=== PATIENT | male | born 1950 | race African-American/Black ===

== ENCOUNTER 2023-04-14 11:52 | Inpatient (IN) | payer OTHER, MEDICAID ==
[~2023-04-14] VITALS: Ht 182.9 cm; Wt 83.8 kg
[2023-04-14 12:00] VITALS: PULSE 112; RESP 24; O2SAT 95
[2023-04-14] MEDS ORDERED: LORazepam 2MG/ML-1ML VIAL ONE (12:39)
[2023-04-14] MEDS ORDERED: LORazepam 2MG/ML-1ML VIAL IV ONE (12:45)
[2023-04-14 13:44] LABS: Base Excess 0.1 mmol/L (-2.0-2.0)
[2023-04-14 14:18] LABS: Basophils # (auto) 0 10 ^3/uL (0-0.2); Basophils % (auto) 0.2 % (0.0-2.0); Eosinophils # (auto) 0 10 ^3/uL (0-0.8); Eosinophils % (auto) 0.2 % (0.0-7.0); Hematocrit 35.4 % (41.0-53.0); Hemoglobin 10.8 g/dL (13.5-17.5); Lymphocytes # (auto) 0.2 10 ^3/uL (0.4-5.4); Lymphocytes % (auto) 3.9 % (10.0-50.0); Mean Corpuscular Hemoglobin 24.6 pg (28.0-32.0); Mean Corpuscular Hgb Conc. 30.5 g/dL (32.0-36.0); Mean Corpuscular Volume 80.6 fL (80.0-100.0); Monocytes # (auto) 0.6 10 ^3/uL (0-1.3); Monocytes % (auto) 10.4 % (0.0-12.0); Neutrophils # (auto) 5.1 10 ^3/uL (1.6-8.6); Neutrophils % (auto) 85.3 % (37.0-80.0); Nucleated Red Blood Cells % 0.1 %; Red Blood Cells 4.39 10^6/uL (4.5-5.90); White Blood Cell 5.9 10^3/uL (4.4-10.8)
[2023-04-14 14:37] LABS: INR 1.24 (0.9-1.15); Partial Thromboplastin Time 26.9 SEC (24.5-34.5); Prothrombin Time 12.8 sec (9.3-11.8)
[2023-04-14 14:42] LABS: Alanine Aminotransferase 48 U/L (7-40); Albumin 3.2 g/dL (3.2-4.8); Alkaline Phosphatase 211 U/L (46-116); Anion Gap 9 (5-15); Aspartate Aminotransferase 46 U/L (13-40); BUN/Creatinine Ratio 18.9 (10.0-20.0); Blood Urea Nitrogen 17 mg/dL (9-23); Calcium 8.6 mg/dL (8.7-10.4); Carbon Dioxide 24 mmol/L (20-30); Chloride 113 mmol/L (98-107); Glucose 140 mg/dL (74-106); Potassium 3.8 mmol/L (3.5-5.1); Sodium 146 mmol/L (136-145)
[2023-04-14 14:43] LABS: Bilirubin, Total 1.7 mg/dL (0.2-1.0)
[2023-04-14 14:44] LABS: Total Protein 6.5 g/dL (5.7-8.2)
[2023-04-14 14:57] LABS: Lactic Acid w/Reflex 3.2 mmol/L (0.4-2.0)
[2023-04-14] MEDS ORDERED: VANCOMYCIN 1GM/200ML 250 ML IV ONE (15:15)
[2023-04-14] MEDS ORDERED: SODIUM CHLORIDE 0.9% 1,000 ML IV ONE (15:15)
[2023-04-14] MEDS ORDERED: levoFLOXacin 500MG 100 ML IV ONE (15:15)
[2023-04-14] MEDS ORDERED: FUROSEMIDE 40 MG/4 ML VIAL IV ONE (18:45)
[2023-04-14 19:28] LABS: Urine Bacteria NONE SEEN /hpf (None Seen); Urine Blood Negative /uL (Negative); Urine Clarity Clear (Clear); Urine Color Yellow (Yellow); Urine Hyaline Cast FEW /lpf (0 - 2); Urine Mucus FEW (None Seen); Urine Protein, UAD TRACE (Negative); Urine Specific Gravity 1.029 (1.001-1.035); Urine WBC 1 /hpf (0 - 3)
[2023-04-14 19:34] LABS: Amphetamine Screen, Urine Neg (NEGATIVE); Barbiturate Scree,Urine Neg (NEGATIVE); Benzodiazephine Screen, Urine Neg (NEGATIVE); Cocaine Screen, Urine Neg (NEGATIVE); Opiate Scree,Urine Neg (NEGATIVE); Phencyclidine Screen, Urine Neg (NEGATIVE)
[2023-04-14 19:35] LABS: Cannabinoid Screen, Urine Pos (NEGATIVE)
[2023-04-14 20:00] VITALS: PULSE 109; RESP 18; O2SAT 98
[2023-04-14] MEDS ORDERED: MORPHINE SULFATE INJ 2 MG/ml SYRG IV PRN (21:30)
[2023-04-14] MEDS ORDERED: NITROGLYCERIN 0.4 MG SL TAB SL PRN (21:30)
[2023-04-14] MEDS ORDERED: ONDANSETRON HCL 4 MG/2 ML VIAL IV PRN (21:30)
[2023-04-14] MEDS ORDERED: ALBUTEROL SULF 2.5 MG/0.5ML(0.5%) NEB SOLN NEB PRN (22:15)
[2023-04-14] MEDS: ENOXAPARIN SOD 100 MG/1 ML SYRINGE SC SCH (22:26)
[2023-04-15] MEDS ORDERED: LORazepam 2MG/ML-1ML VIAL IV ONE ×2 (01:30→14:15)
[2023-04-15 01:31] VITALS: BP 127/68; PULSE 97; RESP 15; TEMP 98.9; O2SAT 97
[2023-04-15] MEDS: LACTULOSE 20Gm/30ML SOLN NG SCH ×6 (02:00→22:35)
[2023-04-15] MEDS: LACTULOSE 10g/15ml SOLN 473ML PR SCH ×4 (06:00→22:34)
[2023-04-15 07:07] VITALS: O2SAT 99
[2023-04-15 07:42] LABS: Eosinophils % (auto) 0.9 % (0.0-7.0); Hematocrit 34.7 % (41.0-53.0); Neutrophils # (auto) 4.2 10 ^3/uL (1.6-8.6)
[2023-04-15 07:46] LABS: Basophils # (auto) 0.1 10 ^3/uL (0-0.2); Basophils % (auto) 1.2 % (0.0-2.0); Eosinophils # (auto) 0 10 ^3/uL (0-0.8); Hemoglobin 10.4 g/dL (13.5-17.5); Lymphocytes # (auto) 0.6 10 ^3/uL (0.4-5.4); Lymphocytes % (auto) 9.8 % (10.0-50.0); Mean Corpuscular Hemoglobin 24.3 pg (28.0-32.0); Mean Corpuscular Volume 80.9 fL (80.0-100.0); Monocytes # (auto) 0.8 10 ^3/uL (0-1.3); Monocytes % (auto) 13.5 % (0.0-12.0); Neutrophils % (auto) 74.6 % (37.0-80.0); Nucleated Red Blood Cells % 0.1 %; Red Blood Cells 4.29 10^6/uL (4.5-5.90); White Blood Cell 5.7 10^3/uL (4.4-10.8)
[2023-04-15 08:00] VITALS: PULSE 113; RESP 18; O2SAT 99
[2023-04-15 08:01] LABS: % Iron Saturation 9.6 % (20-55); Alanine Aminotransferase 43 U/L (7-40); Albumin 3.1 g/dL (3.2-4.8); Alkaline Phosphatase 181 U/L (46-116); Anion Gap 8 (5-15); Aspartate Aminotransferase 55 U/L (13-40); BUN/Creatinine Ratio 14.6 (10.0-20.0); Bilirubin, Total 1.9 mg/dL (0.2-1.0); Blood Urea Nitrogen 14 mg/dL (9-23); Calcium 8.9 mg/dL (8.5-10.1); Carbon Dioxide 25 mmol/L (20-30); Chloride 114 mmol/L (98-107); Glucose 114 mg/dL (74-106); Potassium 4.4 mmol/L (3.5-5.1); Sodium 147 mmol/L (136-145); Total Protein 6.4 g/dL (5.7-8.2)
[2023-04-15] MEDS ORDERED: levoFLOXacin 500MG 100 ML IV SCH (10:00)
[2023-04-15] MEDS: ENOXAPARIN SOD 100 MG/1 ML SYRINGE SC SCH ×2 (10:00→22:35)
[2023-04-15 10:18] LABS: Platelet Estimate Decreased
[2023-04-15 10:20] LABS: Anisocytosis Moderate; Hypochromia Slight; Ovalocytes FEW
[2023-04-15 10:21] LABS: Target Cell FEW; Tear Drop Cells FEW
[2023-04-15] MEDS ORDERED: HALOPERIDOL LACTATE 5 MG/ML INJ VIAL IM ONE (14:15)
[2023-04-15] MEDS: PANTOPRAZOLE 40 MG/10 ML VIAL INJ IV SCH (14:22)
[2023-04-15 19:30] VITALS: PULSE 111; RESP 17; O2SAT 95
[2023-04-15] MEDS ORDERED: VANCOMYCIN 1GM/200ML 250 ML IV ONE (20:00)
[2023-04-15] MEDS ORDERED: VANCOMYCIN PER PHARMACY 0 MG IV SCH (22:00)
[2023-04-15] MEDS: LORazepam 2MG/ML-1ML VIAL IV PRN (23:53)
[2023-04-16] MEDS ORDERED: LORazepam 2MG/ML-1ML VIAL IV ONE (00:45)
[2023-04-16] MEDS ORDERED: diphenhdrAMINE HCL 50 MG/1 ML VL IV ONE (03:00)
[2023-04-16 05:23] LABS: Hemoglobin 10.6 g/dL (13.5-17.5)
[2023-04-16 05:25] LABS: Hematocrit 33.9 % (41.0-53.0); Mean Corpuscular Hemoglobin 24.9 pg (28.0-32.0); Mean Corpuscular Hgb Conc. 31.2 g/dL (32.0-36.0); Red Blood Cells 4.25 10^6/uL (4.5-5.90); White Blood Cell 8.6 10^3/uL (4.4-10.8)
[2023-04-16 05:38] LABS: Alanine Aminotransferase 61 U/L (7-40); Albumin 3.4 g/dL (3.2-4.8); Alkaline Phosphatase 178 U/L (46-116); Anion Gap 10 (5-15); Aspartate Aminotransferase 126 U/L (13-40); BUN/Creatinine Ratio 18.1 (10.0-20.0); Blood Urea Nitrogen 17 mg/dL (9-23); Calcium 8.9 mg/dL (8.7-10.4); Carbon Dioxide 23 mmol/L (20-30); Chloride 115 mmol/L (98-107); Glucose 91 mg/dL (74-106); Potassium 3.7 mmol/L (3.5-5.1); Sodium 148 mmol/L (136-145)
[2023-04-16 05:40] LABS: Bilirubin, Total 2.9 mg/dL (0.2-1.0)
[2023-04-16 05:44] LABS: Red Cell Distribution Width 25.2 % (11.8-14.3)
[2023-04-16 05:46] LABS: Basophils % (manual) 0 (0.0-2.0); Blast Cells 0; Eosinophils % (manual) 0 (0-7); Metamyelocytes % 0; Myelocytes % 0; Promyelocytes % 0; Reactive Lymphocytes 0
[2023-04-16 06:04] VITALS: O2SAT 95
[2023-04-16 06:58] LABS: Anisocytosis Moderate; Band Neutrophils % (manual) 1; Hypochromia Slight; Lymphocytes % (manual) 3 (10.0-50.0); Monocytes % (manual) 9 (0-12)
[2023-04-16 06:59] LABS: Ovalocytes FEW; Platelet Estimate Adequate; Target Cell FEW
[2023-04-16] MEDS: LACTULOSE 10g/15ml SOLN 473ML PR SCH ×4 (07:10→17:45)
[2023-04-16 07:30] VITALS: PULSE 106; RESP 17; O2SAT 98
[2023-04-16] MEDS: ENOXAPARIN SOD 100 MG/1 ML SYRINGE SC SCH ×2 (10:24→23:45)
[2023-04-16] MEDS: PANTOPRAZOLE 40 MG/10 ML VIAL INJ IV SCH (10:25)
[2023-04-16] MEDS: VANCOMYCIN 1GM/200ML 250 ML IV SCH ×2 (10:25→23:44)
[2023-04-16] MEDS ORDERED: HALOPERIDOL LACTATE 5 MG/ML INJ VIAL IM ONE (14:00)
[2023-04-16] MEDS ORDERED: LACTULOSE 20Gm/30ML SOLN PO SCH (18:00)
[2023-04-16 19:05] VITALS: PULSE 113; RESP 21; O2SAT 93
[2023-04-16 22:00] VITALS: BP 146/59; PULSE 101; RESP 17; TEMP 97.6; O2SAT 97
[2023-04-16] MEDS: LORazepam 2MG/ML-1ML VIAL IV PRN (22:15)
[2023-04-17] VITALS (11 sets, daily range): BP systolic 129–148; BP diastolic 66–75; PULSE 68–98; RESP 18–22; TEMP 97.2–98.2; O2SAT 94–99
[2023-04-17] MEDS: LACTULOSE 10g/15ml SOLN 473ML PR SCH ×2 (00:49→04:00)
[2023-04-17] MEDS ORDERED: LACTULOSE 10g/15ml SOLN 473ML PR SCH (08:00)
[2023-04-17] MEDS ORDERED: LACTULOSE 20Gm/30ML SOLN ONE ×3 (09:25→17:34)
[2023-04-17] MEDS: LACTULOSE 20Gm/30ML SOLN PO SCH ×4 (09:30→17:38)
[2023-04-17] MEDS: PANTOPRAZOLE 40 MG/10 ML VIAL INJ IV SCH (09:32)
[2023-04-17] MEDS: ENOXAPARIN SOD 100 MG/1 ML SYRINGE SC SCH ×2 (09:32→21:42)
[2023-04-17] MEDS: LORazepam 2MG/ML-1ML VIAL IV PRN ×2 (10:51→23:07)
[2023-04-17] MEDS: VANCOMYCIN 1GM/200ML 250 ML IV SCH (14:56)
[2023-04-17] MEDS ORDERED: ALBUMIN 25% 100 ML IV ONE ×2 (15:59→17:26)
[2023-04-17] MEDS: ALBUMIN 25% 100 ML IV SCH ×2 (16:21→17:30)
[2023-04-17 16:25] LABS: Body Fluid pH 8
[2023-04-17 16:51] LABS: Body Fluid Polymorphonuclear 6 % (0-25); Body Fluid Red Blood Cells 18 CUMM (0-2000); Body Fluid White Blood Cells 103 CUMM (0-200)
[2023-04-17] MEDS ORDERED: HALOPERIDOL LACTATE 5 MG/ML INJ VIAL IM PRN (22:30)
[2023-04-18] VITALS (9 sets, daily range): BP systolic 113–144; BP diastolic 55–78; PULSE 62–98; RESP 16–19; TEMP 97.7–98.6; O2SAT 93–99
[2023-04-18] MEDS ORDERED: HALOPERIDOL LACTATE 5 MG/ML INJ VIAL ONE (01:32)
[2023-04-18] MEDS: VANCOMYCIN 1GM/200ML 250 ML IV SCH ×2 (01:37→14:47)
[2023-04-18] MEDS ORDERED: LACTULOSE 20Gm/30ML SOLN ONE ×3 (03:16→17:46)
[2023-04-18] MEDS: LACTULOSE 20Gm/30ML SOLN PO SCH ×3 (04:22→17:48)
[2023-04-18] MEDS: ENOXAPARIN SOD 100 MG/1 ML SYRINGE SC SCH ×2 (09:09→22:00)
[2023-04-18] MEDS: LORazepam 2MG/ML-1ML VIAL IV PRN ×3 (09:09→17:56)
[2023-04-18] MEDS: PANTOPRAZOLE 40 MG/10 ML VIAL INJ IV SCH ×2 (09:09→11:10)
[2023-04-18 11:06] LABS: Albumin, Body Fluid 0.2 g/dL (Not Estab.); Protein, Body Fluid 0.6 g/dL (.)
[2023-04-18 11:22] LABS: Basophils # (auto) 0 10 ^3/uL (0-0.2); Basophils % (auto) 0.1 % (0.0-2.0); Eosinophils # (auto) 0.1 10 ^3/uL (0-0.8); Lymphocytes # (auto) 0.4 10 ^3/uL (0.4-5.4); Monocytes # (auto) 0.5 10 ^3/uL (0-1.3)
[2023-04-18 11:24] LABS: Hematocrit 29.5 % (41.0-53.0); Lymphocytes % (auto) 10.8 % (10.0-50.0); Mean Corpuscular Hemoglobin 24.7 pg (28.0-32.0); Mean Corpuscular Hgb Conc. 30.6 g/dL (32.0-36.0); Mean Corpuscular Volume 80.7 fL (80.0-100.0); Monocytes % (auto) 11.6 % (0.0-12.0); Neutrophils % (auto) 75.5 % (37.0-80.0); Nucleated Red Blood Cells % 0.1 %; Red Blood Cells 3.66 10^6/uL (4.5-5.90)
[2023-04-18 11:25] LABS: Red Cell Distribution Width 24.7 % (11.8-14.3)
[2023-04-18 11:34] LABS: Alanine Aminotransferase 45 U/L (7-40); Albumin 2.9 g/dL (3.2-4.8); Alkaline Phosphatase 110 U/L (46-116); Anion Gap 5 (5-15); Aspartate Aminotransferase 75 U/L (13-40); BUN/Creatinine Ratio 15.5 (10.0-20.0); Blood Urea Nitrogen 15 mg/dL (9-23); Calcium 8.4 mg/dL (8.7-10.4); Carbon Dioxide 26 mmol/L (20-30); Chloride 118 mmol/L (98-107); Glucose 119 mg/dL (74-106); Potassium 3.5 mmol/L (3.5-5.1); Sodium 149 mmol/L (136-145)
[2023-04-18 11:35] LABS: Bilirubin, Total 1.3 mg/dL (0.2-1.0); Total Protein 5.6 g/dL (5.7-8.2)
[2023-04-18] MEDS ORDERED: ALBUMIN 25% 100 ML IV ONE ×2 (16:10→16:15)
[2023-04-19] VITALS (9 sets, daily range): BP systolic 119–138; BP diastolic 71–78; PULSE 81–102; RESP 17–20; TEMP 97.9–98.7; O2SAT 95–99
[2023-04-19] MEDS: VANCOMYCIN 1GM/200ML 250 ML IV SCH ×2 (05:00→13:27)
[2023-04-19] MEDS: LACTULOSE 20Gm/30ML SOLN PO SCH ×2 (06:00)
[2023-04-19] MEDS ORDERED: D5W 5% 1,000 ML IV SCH (08:00)
[2023-04-19] MEDS ORDERED: LACTULOSE 20Gm/30ML SOLN PO PRN (10:00)
[2023-04-19] MEDS: SPIRONOLACTONE 25 MG TAB PO SCH (11:31)
[2023-04-19] MEDS: FUROSEMIDE 40 MG TAB PO SCH (11:32)
[2023-04-19] MEDS: ENOXAPARIN SOD 100 MG/1 ML SYRINGE SC SCH (11:32)
[2023-04-19] MEDS: PANTOPRAZOLE 40 MG/10 ML VIAL INJ IV SCH (13:00)
[2023-04-19] MEDS ORDERED: D5W 5% 500 ML IV SCH (14:15)
[2023-04-19] MEDS ORDERED: ACETAMINOPHEN 325 MG TAB PO PRN (15:15)
[2023-04-19] MEDS: HYDROcodone-ACET 5/325MG TAB PO PRN (16:11)
[2023-04-20] VITALS (8 sets, daily range): BP systolic 105–144; BP diastolic 61–80; PULSE 88–105; RESP 16–20; TEMP 98–99.2; O2SAT 94–97
[2023-04-20] MEDS: ENOXAPARIN SOD 100 MG/1 ML SYRINGE SC SCH ×3 (00:25→21:07)
[2023-04-20] MEDS: HYDROcodone-ACET 10/325MG TAB PO PRN ×2 (00:38→21:16)
[2023-04-20] MEDS: VANCOMYCIN 1GM/200ML 250 ML IV SCH ×2 (04:38→17:10)
[2023-04-20 09:08] LABS: Basophils # (auto) 0 10 ^3/uL (0-0.2); Basophils % (auto) 1.1 % (0.0-2.0); Eosinophils # (auto) 0.2 10 ^3/uL (0-0.8); Hematocrit 33.9 % (41.0-53.0); Hemoglobin 9.9 g/dL (13.5-17.5); Lymphocytes # (auto) 0.4 10 ^3/uL (0.4-5.4); Lymphocytes % (auto) 9.9 % (10.0-50.0); Mean Corpuscular Hemoglobin 24.7 pg (28.0-32.0); Mean Corpuscular Hgb Conc. 29.4 g/dL (32.0-36.0); Mean Corpuscular Volume 84.1 fL (80.0-100.0); Monocytes # (auto) 0.6 10 ^3/uL (0-1.3); Monocytes % (auto) 12.7 % (0.0-12.0); Neutrophils # (auto) 3.2 10 ^3/uL (1.6-8.6); Neutrophils % (auto) 72.3 % (37.0-80.0); Nucleated Red Blood Cells % 0.1 %; Red Blood Cells 4.03 10^6/uL (4.5-5.90); White Blood Cell 4.5 10^3/uL (4.4-10.8)
[2023-04-20 09:09] LABS: Red Cell Distribution Width 24.2 % (11.8-14.3)
[2023-04-20 09:21] LABS: Alanine Aminotransferase 56 U/L (7-40); Albumin 2.9 g/dL (3.2-4.8); Alkaline Phosphatase 141 U/L (46-116); Anion Gap 9 (5-15); Aspartate Aminotransferase 60 U/L (13-40); BUN/Creatinine Ratio 16.9 (10.0-20.0); Bilirubin, Total 0.7 mg/dL (0.2-1.0); Blood Urea Nitrogen 13 mg/dL (9-23); Calcium 8.6 mg/dL (8.5-10.1); Carbon Dioxide 19 mmol/L (20-30); Chloride 112 mmol/L (98-107); Glucose 159 mg/dL (74-106); Potassium 4.2 mmol/L (3.5-5.1); Sodium 140 mmol/L (136-145); Total Protein 5.6 g/dL (5.7-8.2)
[2023-04-20] MEDS: PANTOPRAZOLE 40 MG/10 ML VIAL INJ IV SCH (09:53)
[2023-04-20] MEDS: FUROSEMIDE 40 MG TAB PO SCH (09:54)
[2023-04-20] MEDS: SPIRONOLACTONE 25 MG TAB PO SCH (09:54)
[2023-04-20] MEDS: HYDROcodone-ACET 5/325MG TAB PO PRN (15:56)
[2023-04-21 05:00] VITALS: BP 116/64; PULSE 83; RESP 16; TEMP 97.7; O2SAT 96
[2023-04-21 07:43] LABS: Anion Gap 6 (5-15); Carbon Dioxide 22 mmol/L (20-30); Chloride 109 mmol/L (98-107); Potassium 4.2 mmol/L (3.5-5.1); Sodium 137 mmol/L (136-145)
[2023-04-21 07:44] LABS: Calcium 8.7 mg/dL (8.5-10.1)
[2023-04-21 07:49] LABS: BUN/Creatinine Ratio 12.8 (10.0-20.0); Blood Urea Nitrogen 10 mg/dL (9-23); Glucose 149 mg/dL (74-106)
[2023-04-21 08:00] VITALS: PULSE 109; RESP 20
[2023-04-21] MEDS: VANCOMYCIN 1GM/200ML 250 ML IV SCH (08:38)
[2023-04-21 09:00] VITALS: BP 122/62; PULSE 88; RESP 20; TEMP 98.4; O2SAT 98
[2023-04-21 10:00] VITALS: O2SAT 98
[2023-04-21] MEDS: ENOXAPARIN SOD 100 MG/1 ML SYRINGE SC SCH (11:05)
[2023-04-21] MEDS: PANTOPRAZOLE 40 MG/10 ML VIAL INJ IV SCH (11:05)
[2023-04-21] MEDS: SPIRONOLACTONE 25 MG TAB PO SCH (11:06)
[2023-04-21] MEDS: FUROSEMIDE 40 MG TAB PO SCH (11:06)
[2023-04-21] MEDS: HYDROcodone-ACET 10/325MG TAB PO PRN (11:22)
[2023-04-21] MEDS ORDERED: OCTREOTIDE ACETATE 100 MCG/ML VL SUBCUT SCH (14:00)
[2023-04-21] MEDS ORDERED: LACT10SO3 PO (16:07)
[2023-04-21] MEDS ORDERED: SPIR100T4 PO (16:07)
[2023-04-21] MEDS ORDERED: FURO40TA4 PO (16:07)
[2023-04-21] MEDS ORDERED: PANT40TA2 PO (16:07)
== END 2023-04-21 18:35 | disposition home health service (06) | DRG 432 ==
LOC: EDBD 11:52 → ER 11:52 → INTOOBSV 21:56 → TELE 21:56 → TELE-CENTR 04-16 22:40 → OBSVTOIN 04-17 00:46
PROVIDERS: ADMIT Hospitalist; ATTEND Student in an Organized Health Care Education/Training Program
PROC: 0W9G3ZZ Drainage of Peritoneal Cavity, Percutaneous Approach (ICD-10-PCS; principal; 2023-04-17)
PROC: 05HA33Z Insertion of Infusion Device into Left Brachial Vein, Percutaneous Approach (ICD-10-PCS; 2023-04-19)
PROC: B54NZZA Ultrasonography of Left Upper Extremity Veins, Guidance (ICD-10-PCS; 2023-04-19)
PROC: 0W9G3ZZ Drainage of Peritoneal Cavity, Percutaneous Approach (ICD-10-PCS; 2023-04-20)
DX: K74.60 Unspecified cirrhosis of liver (principal); G93.41 Metabolic encephalopathy; J96.01 Acute respiratory failure with hypoxia; D68.59 Other primary thrombophilia; E87.1 Hypo-osmolality and hyponatremia; K76.82 Hepatic encephalopathy; I48.91 Unspecified atrial fibrillation; N40.0 Benign prostatic hyperplasia without lower urinary tract symptoms; E11.40 Type 2 diabetes mellitus with diabetic neuropathy, unspecified; E78.5 Hyperlipidemia, unspecified; D64.9 Anemia, unspecified; E11.51 Type 2 diabetes mellitus with diabetic peripheral angiopathy without gangrene; I10 Essential (primary) hypertension; Z78.1 Physical restraint status; Z79.01 Long term (current) use of anticoagulants; Z83.3 Family history of diabetes mellitus; Z86.011 Personal history of benign neoplasm of the brain; Z86.73 Personal history of transient ischemic attack (TIA), and cerebral infarction without residual deficits; Z89.429 Acquired absence of other toe(s), unspecified side; Z91.128 Patient's intentional underdosing of medication regimen for other reason; Z88.0 Allergy status to penicillin
CPT/HCPCS: 36415; 36600; 70450; 71045; 74176; 76705; 76942; 80048; 80053; 80202; 80307; 81001; 82140; 82565; 82805; 82962; 83540; 83550; 83605; 83615; 83735; 83986; 85007; 85025; 85027; 85045; 85048; 85610; 85730; 87040; 87045; 87077; 87081; 87186; 87205; 87427; 89051; 93005; 95819; 97163; C9113; G0378; J1956; P9047

== ENCOUNTER 2023-05-01 14:36 | Inpatient (IN) | payer OTHER, MEDICAID ==
[~2023-05-01] VITALS: Ht 177.8 cm; Wt 78.3 kg
[~2023-05-01 14:36] MED LIST: FURO40TA4 PO; LACT10SO3 PO; PANT40TA2 PO; SPIR100T4 PO
[2023-05-01 15:33] LABS: Basophils # (auto) 0 10 ^3/uL (0-0.2); Eosinophils # (auto) 0.1 10 ^3/uL (0-0.8); Lymphocytes # (auto) 0.4 10 ^3/uL (0.4-5.4); Monocytes # (auto) 0.7 10 ^3/uL (0-1.3); Nucleated Red Blood Cells % 0.1 %
[2023-05-01 15:35] LABS: Basophils % (auto) 0.2 % (0.0-2.0); Eosinophils % (auto) 1.1 % (0.0-7.0); Hematocrit 29.9 % (41.0-53.0); Hemoglobin 9.2 g/dL (13.5-17.5); Lymphocytes % (auto) 5.5 % (10.0-50.0); Mean Corpuscular Hemoglobin 25.7 pg (28.0-32.0); Mean Corpuscular Hgb Conc. 30.6 g/dL (32.0-36.0); Monocytes % (auto) 10.1 % (0.0-12.0); Neutrophils # (auto) 5.6 10 ^3/uL (1.6-8.6); Neutrophils % (auto) 83.1 % (37.0-80.0); Red Blood Cells 3.57 10^6/uL (4.5-5.90); White Blood Cell 6.8 10^3/uL (4.4-10.8)
[2023-05-01 15:44] LABS: INR 1.21 (0.9-1.15); Partial Thromboplastin Time 26.9 SEC (24.5-34.5); Prothrombin Time 12.5 sec (9.3-11.8)
[2023-05-01 15:45] LABS: Red Cell Distribution Width 25.6 % (11.8-14.3)
[2023-05-01 15:51] LABS: Alanine Aminotransferase 69 U/L (7-40); Albumin 3.4 g/dL (3.2-4.8); Alkaline Phosphatase 211 U/L (46-116); Anion Gap 13 (5-15); Aspartate Aminotransferase 53 U/L (13-40); BUN/Creatinine Ratio 20.8 (10.0-20.0); Blood Urea Nitrogen 20 mg/dL (9-23); Calcium 8.9 mg/dL (8.5-10.1); Carbon Dioxide 15 mmol/L (20-30); Chloride 112 mmol/L (98-107); Glucose 229 mg/dL (74-106); Potassium 4.2 mmol/L (3.5-5.1); Sodium 140 mmol/L (136-145)
[2023-05-01 15:52] LABS: Total Protein 6.5 g/dL (5.7-8.2)
[2023-05-01 16:55] LABS: Platelet Estimate Decreased
[2023-05-01 16:56] LABS: Anisocytosis Moderate; Ovalocytes MODERATE
[2023-05-01] MEDS ORDERED: LACTULOSE 20Gm/30ML SOLN PO ONE (19:45)
[2023-05-01 20:00] VITALS: PULSE 84; RESP 14; O2SAT 98
[2023-05-01] MEDS ORDERED: LORazepam 2MG/ML-1ML VIAL IM ONE (20:45)
[2023-05-01] MEDS ORDERED: LORazepam 2MG/ML-1ML VIAL IV ONE (20:45)
[2023-05-02] MEDS ORDERED: LORazepam 2MG/ML-1ML VIAL IM ONE (02:45)
[2023-05-02] MEDS ORDERED: hydrALAZINE HCL 20 MG/ML VL IV PRN (03:00)
[2023-05-02] MEDS ORDERED: MORPHINE SULFATE INJ 2 MG/ml SYRG IV PRN (03:15)
[2023-05-02] MEDS ORDERED: NITROGLYCERIN 0.4 MG SL TAB SL PRN (03:15)
[2023-05-02] MEDS ORDERED: ONDANSETRON HCL 4 MG/2 ML VIAL IV PRN (03:15)
[2023-05-02] MEDS ORDERED: SOD CHL 0.45% 1,000 ML IV ONE (03:30)
[2023-05-02] MEDS ORDERED: LORazepam 2MG/ML-1ML VIAL IV ONE (06:00)
[2023-05-02 06:41] LABS: Alanine Aminotransferase 63 U/L (7-40); Albumin 3.4 g/dL (3.2-4.8); Alkaline Phosphatase 206 U/L (46-116); Anion Gap 11 (5-15); Aspartate Aminotransferase 44 U/L (13-40); BUN/Creatinine Ratio 10.9 (10.0-20.0); Blood Urea Nitrogen 10 mg/dL (9-23); Calcium 8.9 mg/dL (8.7-10.4); Carbon Dioxide 16 mmol/L (20-30); Chloride 115 mmol/L (98-107); Glucose 156 mg/dL (74-106); Lipase 41 U/L (12-53); Potassium 3.7 mmol/L (3.5-5.1); Sodium 142 mmol/L (136-145)
[2023-05-02 06:42] LABS: Bilirubin, Total 1.9 mg/dL (0.2-1.0); Total Protein 6.8 g/dL (5.7-8.2)
[2023-05-02 07:05] LABS: Basophils # (auto) 0 10 ^3/uL (0-0.2); Eosinophils # (auto) 0 10 ^3/uL (0-0.8); Lymphocytes # (auto) 0.4 10 ^3/uL (0.4-5.4)
[2023-05-02 07:07] LABS: Basophils % (auto) 0.6 % (0.0-2.0); Eosinophils % (auto) 0.3 % (0.0-7.0); Hemoglobin 9.4 g/dL (13.5-17.5); Lymphocytes % (auto) 5.7 % (10.0-50.0); Mean Corpuscular Hemoglobin 25.4 pg (28.0-32.0); Mean Corpuscular Hgb Conc. 30.5 g/dL (32.0-36.0); Mean Corpuscular Volume 83.3 fL (80.0-100.0); Monocytes # (auto) 0.6 10 ^3/uL (0-1.3); Monocytes % (auto) 8.6 % (0.0-12.0); Neutrophils # (auto) 6.3 10 ^3/uL (1.6-8.6); Neutrophils % (auto) 84.8 % (37.0-80.0); Red Blood Cells 3.72 10^6/uL (4.5-5.90); White Blood Cell 7.4 10^3/uL (4.4-10.8)
[2023-05-02 07:27] LABS: Red Cell Distribution Width 25.5 % (11.8-14.3)
[2023-05-02 08:00] VITALS: PULSE 93; RESP 15; O2SAT 97
[2023-05-02] MEDS: LACTULOSE 10g/15ml SOLN 473ML PR SCH ×3 (08:27→20:06)
[2023-05-02 12:07] LABS: Amphetamine Screen, Urine Neg (NEGATIVE); Barbiturate Scree,Urine Neg (NEGATIVE); Benzodiazephine Screen, Urine Neg (NEGATIVE); Cannabinoid Screen, Urine Pos (NEGATIVE); Cocaine Screen, Urine Neg (NEGATIVE); Opiate Scree,Urine Neg (NEGATIVE); Phencyclidine Screen, Urine Neg (NEGATIVE)
[2023-05-02 14:54] LABS: Urine Bacteria FEW /hpf (None Seen); Urine Blood Negative /uL (Negative); Urine Budding Yeast FEW /hpf (None Seen); Urine Clarity HAZY (Clear); Urine Color Yellow (Yellow); Urine Mucus FEW (None Seen); Urine Protein, UAD TRACE (Negative); Urine Specific Gravity 1.024 (1.001-1.035); Urine WBC 85 /hpf (0 - 3); Urine pH 5.5 (5.0-8.0)
[2023-05-02] MEDS: cefTRIAXone 1GM/50ML D5W 50 ML IV SCH (15:49)
[2023-05-02 19:45] VITALS: PULSE 97; RESP 10; O2SAT 98
[2023-05-02] MEDS: LORazepam 2MG/ML-1ML VIAL IV PRN (20:25)
[2023-05-02 22:00] VITALS: BP 155/86; PULSE 100; RESP 19; TEMP 98.2; O2SAT 100
[2023-05-02] MEDS: rifAXIMin 550 MG TAB PO SCH (22:00)
[2023-05-02 22:10] VITALS: TEMP 36.8
[2023-05-03] VITALS (7 sets, daily range): BP systolic 129–159; BP diastolic 66–84; PULSE 85–98; RESP 15–20; TEMP 97.2–98.7; O2SAT 92–100
[2023-05-03] MEDS ORDERED: LACTULOSE 10g/15ml SOLN 473ML PR SCH (02:00)
[2023-05-03] MEDS: LACTULOSE 10g/15ml SOLN 473ML PR SCH ×4 (02:22→20:00)
[2023-05-03] MEDS: LORazepam 2MG/ML-1ML VIAL IV PRN (03:28)
[2023-05-03] MEDS: cefTRIAXone 1GM/50ML D5W 50 ML IV SCH (09:50)
[2023-05-03] MEDS: LACTULOSE 20Gm/30ML SOLN PO SCH ×4 (12:00→22:47)
[2023-05-03] MEDS: rifAXIMin 550 MG TAB PO SCH ×2 (12:57→22:45)
[2023-05-04] MEDS: LORazepam 2MG/ML-1ML VIAL IV PRN ×4 (00:03→18:28)
[2023-05-04] MEDS: LACTULOSE 20Gm/30ML SOLN PO SCH ×4 (00:04→18:42)
[2023-05-04] MEDS: LACTULOSE 10g/15ml SOLN 473ML PR SCH ×3 (02:00→11:57)
[2023-05-04] MEDS ORDERED: LORazepam 2MG/ML-1ML VIAL IV ONE (03:30)
[2023-05-04 08:30] VITALS: BP 154/50; PULSE 98; RESP 19; TEMP 97.4
[2023-05-04 09:00] VITALS: BP 154/50; PULSE 98; RESP 19; TEMP 97.4
[2023-05-04] MEDS: cefTRIAXone 1GM/50ML D5W 50 ML IV SCH (09:25)
[2023-05-04] MEDS: rifAXIMin 550 MG TAB PO SCH ×3 (10:00→21:34)
[2023-05-04 13:00] VITALS: BP 158/77; PULSE 98; RESP 19; TEMP 97.4
[2023-05-04 16:55] VITALS: BP 139/62; PULSE 81; RESP 18; TEMP 97.7; O2SAT 99
[2023-05-04 20:00] VITALS: PULSE 89
[2023-05-04 21:53] VITALS: BP 157/69; PULSE 96; RESP 18; TEMP 97.7; O2SAT 95
[2023-05-05] MEDS: LACTULOSE 20Gm/30ML SOLN PO SCH ×5 (00:15→23:08)
[2023-05-05] MEDS: LORazepam 2MG/ML-1ML VIAL IV PRN (00:37)
[2023-05-05 06:33] LABS: Alanine Aminotransferase 58 U/L (7-40); Albumin 3.4 g/dL (3.2-4.8); Alkaline Phosphatase 181 U/L (46-116); Anion Gap 11 (5-15); Aspartate Aminotransferase 53 U/L (13-40); BUN/Creatinine Ratio 13.9 (10.0-20.0); Blood Urea Nitrogen 11 mg/dL (9-23); Calcium 8.9 mg/dL (8.7-10.4); Carbon Dioxide 17 mmol/L (20-30); Chloride 120 mmol/L (98-107); Glucose 101 mg/dL (74-106); Potassium 3.5 mmol/L (3.5-5.1)
[2023-05-05 06:34] LABS: Bilirubin, Total 1.3 mg/dL (0.2-1.0); Total Protein 6.6 g/dL (5.7-8.2)
[2023-05-05 06:39] LABS: Sodium 148 mmol/L (136-145)
[2023-05-05 07:26] LABS: Basophils # (auto) 0 10 ^3/uL (0-0.2); Basophils % (auto) 0.2 % (0.0-2.0); Eosinophils # (auto) 0.1 10 ^3/uL (0-0.8); Lymphocytes # (auto) 0.3 10 ^3/uL (0.4-5.4); Mean Corpuscular Hgb Conc. 31.4 g/dL (32.0-36.0); Monocytes # (auto) 0.4 10 ^3/uL (0-1.3); Neutrophils # (auto) 3.9 10 ^3/uL (1.6-8.6); Nucleated Red Blood Cells % 0.1 %; Red Blood Cells 3.83 10^6/uL (4.5-5.90)
[2023-05-05 07:29] LABS: Eosinophils % (auto) 1.4 % (0.0-7.0); Hematocrit 31.7 % (41.0-53.0); Lymphocytes % (auto) 5.6 % (10.0-50.0); Mean Corpuscular Volume 82.8 fL (80.0-100.0); Monocytes % (auto) 8.4 % (0.0-12.0); Neutrophils % (auto) 84.4 % (37.0-80.0); White Blood Cell 4.7 10^3/uL (4.4-10.8)
[2023-05-05 07:52] LABS: Red Cell Distribution Width 26.3 % (11.8-14.3)
[2023-05-05 08:00] VITALS: PULSE 103; PULSE 86; RESP 18
[2023-05-05] MEDS: cefTRIAXone 1GM/50ML D5W 50 ML IV SCH (09:00)
[2023-05-05] MEDS ORDERED: LORazepam 0.5 MG TAB PO PRN (11:30)
[2023-05-05] MEDS: rifAXIMin 550 MG TAB PO SCH ×2 (11:35→21:42)
[2023-05-05] MEDS: PANTOPRAZOLE 40 MG TAB PO SCH (11:35)
[2023-05-05] MEDS: SPIRONOLACTONE 25 MG TAB PO SCH (11:35)
[2023-05-05] MEDS: FUROSEMIDE 40 MG TAB PO SCH (11:36)
[2023-05-05 12:50] LABS: Platelet Estimate Adequate
[2023-05-05 12:51] LABS: Anisocytosis Moderate
[2023-05-05 13:00] VITALS: BP 136/66; PULSE 82; RESP 18; TEMP 98.5; O2SAT 96
[2023-05-05 16:38] VITALS: BP 140/72; PULSE 78; RESP 19; TEMP 98; O2SAT 95
[2023-05-05 20:00] VITALS: PULSE 90
[2023-05-05 22:00] VITALS: BP 139/66; PULSE 87; RESP 19; TEMP 98.4; O2SAT 96
[2023-05-06 05:00] VITALS: BP 139/77; PULSE 83; RESP 18; TEMP 97.5; O2SAT 99
[2023-05-06] MEDS: LACTULOSE 20Gm/30ML SOLN PO SCH ×2 (06:34→13:16)
[2023-05-06 08:00] VITALS: PULSE 64
[2023-05-06] MEDS: cefTRIAXone 1GM/50ML D5W 50 ML IV SCH (08:08)
[2023-05-06] MEDS: SPIRONOLACTONE 25 MG TAB PO SCH (08:18)
[2023-05-06] MEDS: rifAXIMin 550 MG TAB PO SCH (08:18)
[2023-05-06] MEDS: FUROSEMIDE 40 MG TAB PO SCH (08:19)
[2023-05-06] MEDS: PANTOPRAZOLE 40 MG TAB PO SCH (08:19)
[2023-05-06 09:00] VITALS: BP 127/67; PULSE 77; RESP 17; TEMP 98.1; O2SAT 98
[2023-05-06 11:01] LABS: Basophils # (auto) 0 10 ^3/uL (0-0.2); Eosinophils # (auto) 0.1 10 ^3/uL (0-0.8); Hemoglobin 9.5 g/dL (13.5-17.5); Lymphocytes # (auto) 0.5 10 ^3/uL (0.4-5.4); Mean Corpuscular Volume 83.8 fL (80.0-100.0); Monocytes # (auto) 0.6 10 ^3/uL (0-1.3); Neutrophils # (auto) 4.3 10 ^3/uL (1.6-8.6); Nucleated Red Blood Cells % 0.2 %; White Blood Cell 5.5 10^3/uL (4.4-10.8)
[2023-05-06 11:05] LABS: Basophils % (auto) 0.1 % (0.0-2.0); Eosinophils % (auto) 1.7 % (0.0-7.0); Hematocrit 30.9 % (41.0-53.0); Lymphocytes % (auto) 8.3 % (10.0-50.0); Mean Corpuscular Hemoglobin 25.8 pg (28.0-32.0); Mean Corpuscular Hgb Conc. 30.8 g/dL (32.0-36.0); Monocytes % (auto) 10.7 % (0.0-12.0); Neutrophils % (auto) 79.2 % (37.0-80.0); Red Blood Cells 3.69 10^6/uL (4.5-5.90)
[2023-05-06 11:07] LABS: Red Cell Distribution Width 25.9 % (11.8-14.3)
[2023-05-06 11:20] LABS: Alanine Aminotransferase 52 U/L (7-40); Albumin 3.1 g/dL (3.2-4.8); Alkaline Phosphatase 176 U/L (46-116); Anion Gap 8 (5-15); Aspartate Aminotransferase 43 U/L (13-40); Bilirubin, Total 1.2 mg/dL (0.2-1.0); Blood Urea Nitrogen 8 mg/dL (9-23); Calcium 8.4 mg/dL (8.7-10.4); Carbon Dioxide 20 mmol/L (20-30); Chloride 114 mmol/L (98-107); Glucose 158 mg/dL (74-106); Magnesium 1.9 mg/dL (1.6-2.6); Potassium 3.5 mmol/L (3.5-5.1); Sodium 142 mmol/L (136-145); Total Protein 6.1 g/dL (5.7-8.2)
[2023-05-06] MEDS ORDERED: RIFA550T PO (11:48)
[2023-05-06 13:00] VITALS: BP 121/66; PULSE 72; RESP 18; TEMP 97.8; O2SAT 99
[2023-05-06 18:28] LABS: Body Fluid Polymorphonuclear 11 % (0-25); Body Fluid Red Blood Cells 480 CUMM (0-2000); Body Fluid White Blood Cells 37.5 CUMM (0-200)
[2023-05-07 09:55] LABS: Hepatitis B Core Total AB Negative (Negative)
[2023-05-07 12:06] LABS: Albumin, Body Fluid 0.4 g/dL (Not Estab.)
[2023-05-07 12:12] LABS: Hepatitis A Ab IgM Negative; Hepatitis A Total Antibody Positive (Negative); Hepatitis B Core IgM Negative
[2023-05-07 12:13] LABS: Hepatitis B Surface Antibody Positive (Negative); Hepatitis B Surface Antigen Negative (Negative); Hepatitis C Antibody Negative (Negative)
== END 2023-05-06 17:14 | disposition home health service (06) | DRG 433 ==
LOC: ER 14:36 → EDBD 14:36 → EDUNIT# 14:36 → TELE 05-02 03:12 → TELE-WESTW 05-02 03:18 → OBSVTOIN 05-04 03:29
PROVIDERS: ADMIT Student in an Organized Health Care Education/Training Program; ATTEND Student in an Organized Health Care Education/Training Program
PROC: 05H933Z Insertion of Infusion Device into Right Brachial Vein, Percutaneous Approach (ICD-10-PCS; 2023-05-05)
PROC: B54MZZA Ultrasonography of Right Upper Extremity Veins, Guidance (ICD-10-PCS; 2023-05-05)
PROC: 0W9G3ZZ Drainage of Peritoneal Cavity, Percutaneous Approach (ICD-10-PCS; principal; 2023-05-06)
DX: K74.60 Unspecified cirrhosis of liver (principal); N39.0 Urinary tract infection, site not specified; R18.8 Other ascites; K76.82 Hepatic encephalopathy; I10 Essential (primary) hypertension; E11.51 Type 2 diabetes mellitus with diabetic peripheral angiopathy without gangrene; E26.1 Secondary hyperaldosteronism; I48.91 Unspecified atrial fibrillation; N40.0 Benign prostatic hyperplasia without lower urinary tract symptoms; Z88.0 Allergy status to penicillin
CPT/HCPCS: 36415; 76705; 76942; 80053; 80074; 80307; 80320; 81001; 82140; 83690; 83735; 83986; 85025; 85610; 85730; 86703; 86704; 86706; 86708; 86803; 87081; 87205; 87340; 89051; 93005; 96360; 96372; 97163; 99291; G0378